=== PATIENT | female | born 1980 | race Caucasian/White ===

== ENCOUNTER 2021-04-10 20:00 | Outpatient (CLI) | payer BC, SELFPAY | END 2021-04-10 20:01 | disposition home or self-care (01) | LOC: SLEEP 04-11 08:47 | PROVIDERS: PCP Family Medicine; Visit Provider Family Medicine | DX: G47.10 Hypersomnia, unspecified (principal); R06.83 Snoring; R53.83 Other fatigue | CPT/HCPCS: 95810 ==

== ENCOUNTER 2021-08-28 15:53 | Outpatient (CLI) | payer BC, SELFPAY ==
[2021-08-28 16:34] LABS: D Dimer <= 0.27 ug/mIFEU (0-0.59)
[2021-08-28 17:00] LABS: NT Pro B Type Natriuretic Pept 51 pg/mL (0-125)
== END 2021-08-28 15:54 | disposition home or self-care (01) ==
PROVIDERS: PCP Family Medicine; Visit Provider Nurse Practitioner Family
DX: R06.02 Shortness of breath (principal)
CPT/HCPCS: 83880; 85378